=== PATIENT | female | born 1975 | race Asian ===

== ENCOUNTER 2017-10-06 17:20 | Day surgery (SDC) | payer OTHER ==
[~2017-10-06] VITALS: Ht 162.6 cm; Wt 52.2 kg
--- NOTE | 2017-10-06 17:21 | NUR ---
PT AMBULATED TO BED 2
[2017-10-06 17:33] VITALS: BP 104/48
--- NOTE | 2017-10-06 17:36 | NUR ---
41YO F PATIENT REFFERED TO ED BY DR BELLA FOR D&C S/P INCOMPLEAT MISCARRIAG. PT STATES SPOTTING FOR 3WKS. PT STATES LOWER ABD CRAMPING . DENIES N/V/D; SKIN IS PINK/WARM/DRY; AAOX4 WITH EVEN AND STEADY GAIT; LUNGS CLEAR BL; HR EVEN AND REGULAR; PT DENIES ANY FEVER, CP, SOB, OR COUGH AT THIS TIME; PATIENT STATES PAIN OF 2/10 AT THIS TIME; VSS; PATIENT POSITIONED FOR COMFORT; HOB ELEVATED; BEDRAILS UP X2; BED DOWN. ER MD MADE AWARE OF PT STATUS.
--- NOTE | 2017-10-06 17:53 | NUR ---
PATIENT SIGNED SURGICAL CONSENT
[2017-10-06 18:17] LABS: APPEARANCE,URINE CLEAR (CLEAR); BILIRUBIN,URINE NEGATIVE (NEGATIVE); BLOOD, URINE NEGATIVE (NEGATIVE); COLOR,URINE YELLOW (YELLOW); LEUKOCYTE ESTERASE ,URINE NEGATIVE (NEGATIVE); NITRITE, URINE NEGATIVE (NEGATIVE); UGLUCOSE NEGATIVE (NEGATIVE)
[2017-10-06 18:19] LABS: BASOPHILS % (AUTO) 0.2 % (0.0-2.0); EOSINOPHILS % (AUTO) 0.1 % (0.0-4.0); HEMATOCRIT 37.2 % (36-48); HEMOGLOBIN 12.5 g/dL (12.0-16.0); LYMPHOCYTES # (AUTO) 1.9 K/uL (2.5-16.5); MEAN CORPUSCULAR HEMOGLOBIN 31 pg (27-31); MEAN CORPUSCULAR HGB CONC 34 g/dL (33-37); MEAN CORPUSCULAR VOLUME 91.2 fL (80-94); MONOCYTES # (AUTO) 0.2 K/uL (0.8-1.0); MONOCYTES % (AUTO) 3.6 % (1.7-9.3); NEUTROPHILS # (AUTO) 3.9 K/uL (1.8-7.7); NEUTROPHILS % (AUTO) 65.1 % (42.2-75.2); PLATELET COUNT (AUTO) 207 K/uL (140-450); RED BLOOD CELL COUNT(AUTO) 4.08 MIL/uL (4.20-5.40); RED CELL DISTRIBUTION WIDTH 13.5 % (11.6-13.7)
--- NOTE | 2017-10-06 19:08 | NUR ---
report received from rajesh andrea
--- NOTE | 2017-10-06 19:14 | NUR ---
REPORT GIVEN TO BRENNEN KINGSLEY FOR CONTINUITY OF CARE
--- NOTE | 2017-10-06 19:14 | NUR ---
pt resting in bed, denies izzy pain. no s/s of distress noted at the moment.
--- NOTE | 2017-10-06 19:44 | NUR ---
Patient will be admitted to care of Felicita BELLA. Admited to MED SURG. Will go to [id number]. Belongings list completed. Report to SANCHO PALACIO AT BEDSIDE.
[2017-10-06] MEDS ORDERED: ACETAMINOPHEN/CODEINE 300/30MG 1 TAB PO PRN (20:50)
[2017-10-06] MEDS ORDERED: ONDANSETRON 4 MG/2 ML VIAL IVP PRN (20:50)
[2017-10-06] MEDS ORDERED: MORPHINE SULFATE 4 MG/ML SYR IM/IVP PRN (20:50)
[2017-10-06] MEDS ORDERED: IBUPROFEN 800 MG TAB PO PRN (20:50)
[2017-10-06] MEDS ORDERED: PROPOFOL 200 MG/20 ML VIAL IV ONE (20:52)
[2017-10-06] MEDS ORDERED: KETOROLAC 30 MG/ML VIAL ONE (20:52)
[2017-10-06] MEDS ORDERED: ONDANSETRON 4 MG/2 ML VIAL ONE (20:52)
[2017-10-06] MEDS ORDERED: DEXAMETHASONE 4 MG/ML VIAL ONE (20:52)
[2017-10-06] MEDS ORDERED: SEVOFLURANE 250 ML BTL INH ONE (20:52)
[2017-10-06] MEDS ORDERED: fentaNYL 0.05 MG/ML VIAL ONE (20:54)
--- NOTE | 2017-10-06 22:07 | NUR ---
RECEIVED A 41 Y/O FEMALE FROM OR VIA BED WITH IV LEFT FA 18 G. V/S TAKEN AND RECORDED. PATIENT IN COMFORTABLE POSITION WITH CALL LIGHT WITHIN REACH.CHECKED TI PAD DRY AND NO BLEEDING NOTED UPON ENDORSEMENT. WILL CONTINUE TO MONITOR.
--- NOTE | 2017-10-06 22:40 | NUR ---
PATIENT WENT TO BATHROOM TO URINATE AND COMPLAINED OF PAIN . JELLY-O GIVEN TO PATIENT. WILL CONTINUE TO MONITOR.
--- NOTE | 2017-10-06 22:46 | NUR ---
MEDICATION GIVEN TO PATIENT TO ALLEVIATE PAIN. WILL CONTINUE TO MONITOR .
[2017-10-07 00:02] VITALS: BP 108/62
--- NOTE | 2017-10-07 00:30 | NUR ---
DISCHARGE PATIENT VIA WHEELCHAIR. IV REMOVED AND ALL BELONGINGS TAKEN WITH THE PATIENT. V/ S TAKEN WITHIN NORMAL RANGE. PATIENT VOID TWICE AND ABLE TO ATE JELLY-0. PAIN LEVEL OF 2 DURING THE DISCHARGE. NO BLEEDING NOTED. PATIENT STATES " IM OK RIGHT NOW". PATIENT LEFT IN STABLE CONDITION ACCOMPANIED BY USING PRIVATE TRANSPORTATION. DISCHARGE PACKET GIVEN TO PATIENT AND INSTRUCTED TO FOLLOW-UP WITH DR. CAROLINA BELLA IN 1 WEEK. PATIENT VERBALIZED UNDERSTANDING.
== END 2017-10-06 23:00 | disposition home or self-care (01) ==
LOC: MED 17:20 → MTU 17:23 → MDS 17:23 → MTU 17:23 → UNDOADMOB 17:23 → MDS 23:00 → UNDODISOB 10-07 00:35
PROVIDERS: ATTEND Obstetrics & Gynecology
DX: O02.1 Missed abortion (principal); Z3A.14 14 weeks gestation of pregnancy; D25.9 Leiomyoma of uterus, unspecified
CPT/HCPCS: 36415; 59820; 81003; 85025; 86886; 86900; 86901; 87081; 99285; J1100; J1885; J2405; J2704; J3010; J7120

== ENCOUNTER 2017-11-04 15:29 | Inpatient (IN) | payer OTHER ==
[~2017-11-04] VITALS: Ht 162.6 cm; Wt 52.2 kg
--- NOTE | 2017-11-04 15:33 | NUR ---
PATIENT AMBULATED TO BED 03.
[2017-11-04 15:39] VITALS: BP 98/49
--- NOTE | 2017-11-04 15:40 | NUR ---
PATIENT PRESENTS TO ED WITH ABDOMINAL CRAMPING, ABNORMAL VAGINAL BLEEDING. PATIENT STATES SHE HAD AN 2 WEEKS AGO AND IS NOT BLEEDING AND IN PAIN. OR DOCTOR NOTIFIED AND AT BEDSIDE. STATES SHE HAS RETAINED PLACENTA. OR CONTACTED, IV STARTED.
[2017-11-04 15:52] LABS: BASOPHILS % (AUTO) 0.6 % (0.0-2.0); EOSINOPHILS % (AUTO) 0.6 % (0.0-4.0); HEMOGLOBIN 11.2 g/dL (12.0-16.0); LYMPHOCYTES # (AUTO) 1.9 K/uL (2.5-16.5); LYMPHOCYTES % (AUTO) 39.2 % (20.5-51.1); MEAN CORPUSCULAR HEMOGLOBIN 30 pg (27-31); MEAN CORPUSCULAR HGB CONC 33 g/dL (33-37); MEAN CORPUSCULAR VOLUME 92.3 fL (80-94); MONOCYTES # (AUTO) 0.3 K/uL (0.8-1.0); MONOCYTES % (AUTO) 5.8 % (1.7-9.3); NEUTROPHILS # (AUTO) 2.6 K/uL (1.8-7.7); NEUTROPHILS % (AUTO) 53.8 % (42.2-75.2); PLATELET COUNT (AUTO) 198 K/uL (140-450); RED BLOOD CELL COUNT(AUTO) 3.68 MIL/uL (4.20-5.40); RED CELL DISTRIBUTION WIDTH 13.7 % (11.6-13.7); WHITE BLOOD COUNT (AUTO) 4.8 K/uL (4.8-10.8)
[2017-11-04] MEDS ORDERED: ONDANSETRON 4 MG/2 ML VIAL ONE (16:00)
[2017-11-04] MEDS ORDERED: SEVOFLURANE 250 ML BTL INH ONE (16:00)
[2017-11-04] MEDS ORDERED: PROPOFOL 200 MG/20 ML VIAL IV ONE (16:00)
[2017-11-04] MEDS ORDERED: SUCCINYLCHOLINE CHLORIDE 200 MG/10 ML VIAL IVP ONE (16:00)
[2017-11-04] MEDS ORDERED: DEXAMETHASONE 4 MG/ML VIAL ONE (16:00)
--- NOTE | 2017-11-04 16:03 | NUR ---
PATIENT TAKEN TO OR BY OR STAFF AND DR Felicita BELLA.
[2017-11-04] MEDS ORDERED: fentaNYL 0.05 MG/ML VIAL ONE (16:05)
[2017-11-04] MEDS ORDERED: MIDAZOLAM 2 MG/2 ML VIAL ONE (16:05)
[2017-11-04] MEDS ORDERED: ceFAZolin 1,000 MG VIAL ONE (17:30)
[2017-11-04] MEDS ORDERED: ACETAMINOPHEN/CODEINE 300/30MG 1 TAB PO PRN (17:50)
[2017-11-04] MEDS ORDERED: MORPHINE SULFATE 4 MG/ML SYR ONE ×2 (17:53→19:08)
[2017-11-04 18:14] LABS: HEMATOCRIT 30.4 % (36-48)
[2017-11-04] MEDS ORDERED: OXYTOCIN 10 UNITS/ML VIAL ONE (18:14)
[2017-11-04] MEDS ORDERED: METHYLERGONOVINE 0.2 MG/ML AMP ONE (18:18)
[2017-11-04] MEDS ORDERED: THROMBIN KIT 20 MU VIAL TP ONE (18:22)
[2017-11-04] MEDS ORDERED: BUPIVACAINE-MPF 0.5% 30 ML VIAL INJ ONE (18:33)
[2017-11-04] MEDS ORDERED: METOCLOPRAMIDE 10 MG/2 ML INJ VIAL IVP PRN (18:50)
[2017-11-04] MEDS ORDERED: MORPHINE SULFATE 4 MG/ML SYR IVP PRN ×2 (18:50)
[2017-11-04] MEDS ORDERED: MIDAZOLAM 2 MG/2 ML VIAL IV ONE (18:50)
[2017-11-04] MEDS ORDERED: MORPHINE SULFATE 2 MG/ML SYR IVP PRN (18:50)
[2017-11-04] MEDS ORDERED: METOCLOPRAMIDE 10 MG/2 ML INJ VIAL ONE (19:00)
[2017-11-04 19:50] VITALS: BP 91/32
--- NOTE | 2017-11-04 19:50 | NUR ---
RECEIVED PT REPORT AT BEDSIDE FROM OR FOR CONTINUITY OF CARE. PT SLEEPING. PT IV NOTED LFA 20G INFUSING IV NS OPEN WIDE. PT BP IS LOW AND HAS ORDERS FOR 2 UNITS PRBC. BED LOWERED CALL LIGHT WITHIN REACH SPEAKS LITTLE KAZAKH MAINLY MANDARIN.
--- NOTE | 2017-11-04 20:30 | NUR ---
STARTED 1 UNIT PRBC.
--- NOTE | 2017-11-04 20:45 | NUR ---
NO REACTIONS WILL CONTINUE TO INFUSE. WILL CONTINUE TO MONITOR.
[2017-11-04] MEDS: MORPHINE SULFATE 4 MG/ML SYR IM/IVP PRN (22:33)
[2017-11-05] VITALS: BP 100/59
[2017-11-05] MEDS: MORPHINE SULFATE 4 MG/ML SYR IM/IVP PRN ×3 (03:26→12:51)
[2017-11-05 07:13] LABS: BASOPHILS % (AUTO) 0.2 % (0.0-2.0); HEMATOCRIT 28.3 % (36-48); HEMOGLOBIN 9.7 g/dL (12.0-16.0); LYMPHOCYTES # (AUTO) 1.1 K/uL (2.5-16.5); MEAN CORPUSCULAR HEMOGLOBIN 32 pg (27-31); MEAN CORPUSCULAR HGB CONC 34 g/dL (33-37); MEAN CORPUSCULAR VOLUME 93.1 fL (80-94); MONOCYTES # (AUTO) 0.3 K/uL (0.8-1.0); MONOCYTES % (AUTO) 5.1 % (1.7-9.3); NEUTROPHILS # (AUTO) 5.3 K/uL (1.8-7.7); NEUTROPHILS % (AUTO) 78.7 % (42.2-75.2); PLATELET COUNT (AUTO) 142 K/uL (140-450); RED BLOOD CELL COUNT(AUTO) 3.04 MIL/uL (4.20-5.40); RED CELL DISTRIBUTION WIDTH 13.6 % (11.6-13.7); WHITE BLOOD COUNT (AUTO) 6.7 K/uL (4.8-10.8)
--- NOTE | 2017-11-05 07:30 | NUR ---
GAVE REPORT TO DAYSHIFT NURSE FOR CONTINUITY OF CARE.
--- NOTE | 2017-11-05 07:31 | NUR ---
RECEIVED REPORT FROM THE DEFENSIVE SECONDARY COACH NURSE AT BEDSIDE FOR CONTINUITY OF CARE. PT IS AWAKE AND ORIENTED. INTRODUCED MYSELF AND UPDATED THE BOARDS. PT HAS IV ON L FA 20G SL. PT HAS ABDOMINAL DRESSING IN LOWER ABD. S/P D&C AND A TUMOR REMOVED IN THE C SEC AREA. PT HAS A ROSAS CATH. PT IS WEAK AND PALE. SPEAKS VERY SOFTLY. V/S WITHIN NORMAL RANGE. NO BLEEDING NOTED. NO TRAY CAME. WILL CALL FOR A CLEAR LIQUID DIET TRAY. WILL CONTINUE TO MONITOR PT.
[2017-11-05 08:00] VITALS: BP 96/60
--- NOTE | 2017-11-05 08:32 | NUR ---
PATIENT HAS BEEN SCREENED AND CATEGORIZED LOW NUTRITION RISK. PATIENT WILL BE SEEN WITHIN 7 DAYS OF ADMISSION. 11/11/[address]
[2017-11-05] MEDS: ALUMINUM HYD/MAG/SIMETHICONE 30 ML UDC PO PRN ×2 (09:30→18:38)
--- NOTE | 2017-11-05 09:36 | NUR ---
ADMINISTERED MYLANTA FOR GAS PAIN. PT TOLERATED WELL. REMOVED ROSAS CATH. 600ML IN THE BAG. TOLERATED WELL. GAVE HER PADS AND UNDERWEAR. BUT NO SIGNS OF BLEEDING. ENCOURAGED PT TO AMBULATE TODAY. WILL CONTINUE TO MONITOR PT.
--- NOTE | 2017-11-05 11:12 | NUR ---
PT SLEEPING. SPOUSE AT BEDSIDE. WILL CONTINUE TO MONITOR PT.
[2017-11-05] MEDS ORDERED: MORPHINE SULFATE 4 MG/ML SYR ONE (12:49)
--- NOTE | 2017-11-05 13:40 | NUR ---
ASKED HARLEY RN TO TRANSLATE IN MANDARIN. PT'S SPOUSE WAS ASKING QUESTIONS REGARDING PT BEING DISCHARGED TODAY. PT HAD A LAPAROTOMY, HYSTEROTOMY, AND D & C , YESTERDAY. PT IS WEAK. UNABLE TO AMBULATE, UNABLE TO TURN TO HER SIDE FOR THE BEDPAN. PT HAD TO BE PICKED UP BY THE SPOUSE TO BE PLACE ON THE BEDPAN. PT IS IN A LOT OF PAIN. MORPHINE HELPED. EXPLAINED TO PT'S SPOUSE, IF PT IS NOT ABLE TO STAND UP AND AMBULATE, URINATE, AND PASS GAS, IT IS UNLIKELY SHE WILL GO HOME TODAY. HE ASKED ABOUT FISH SOUP, [place]. OK TO BRING, IF SHE TOLERATES IT. WILL CONTINUE TO MONITOR PT.
--- NOTE | 2017-11-05 13:44 | NUR ---
Clinical review faxed to Suzanne at [facility] at [phone]
--- NOTE | 2017-11-05 15:02 | NUR ---
PT RESTING COMFORTABLY. SPOUSE AT BEDSIDE. NO SIGNS OF DISTRESS. WILL CONTINUE TO MONITOR PT.
[2017-11-05 16:00] VITALS: BP 100/61
--- NOTE | 2017-11-05 16:48 | NUR ---
PER PT, PT GOT UP EARLIER WITH HER AND AMBULATED TO THE BATHROOM AND URINATED TODAY. WILL CONTINUE TO MONITOR PT.
--- NOTE | 2017-11-05 18:06 | NUR ---
WOUND CARE DONE. REMOVED OLD DRESSING, CLEANED AND PATTED DRY. TOOK PICTURE. FILED IN CHART. REDRESSED WITH CLEAN ABD PAD AND PAPER TAPE. STERI STRIPS INTACT. PT TOLERATED WELL. WILL CONTINUE TO MONITOR PT.
[2017-11-05] MEDS: HYDROcodone/APAP 7.5/325 MG 1 TAB PO PRN (18:26)
--- NOTE | 2017-11-05 18:42 | NUR ---
DR BELLA IS HERE TO SEE PT. PER , PT WILL STAY ANOTHER DAY. PT AMBULATED TO AND FROM THE BATHROOM. WILL CONTINUE TO MONITOR PT.
--- NOTE | 2017-11-05 19:27 | NUR ---
ENDORSED PT TO THE OFFICE MESSENGER HELPER NURSE AT BEDSIDE FOR CONTINUITY OF CARE. PT IS IN STABLE CONDITION.
--- NOTE | 2017-11-05 19:30 | NUR ---
REPORT RECEIVED FROM HARPREET KINGSLEY DAYSHIFT NURSE AT BEDSIDE FOR TRANSFER OF CARE. PT IN STABLE CONDITION LYING IN LOW BED, WITH SIDE RAILS UP X 2 AND CALL GUTIERREZ IN REACH. PT C/ OF MILD PAIN 2-08/02. PT DRESSING IS DRY AND INTACT AND PT STATES THAT SHE HAS NOT HAD ANY MORE VAGINAL BLEEDING AT THIS TIME. PT TEMP WAS 100.1 PT DECLINED ANY PAIN RELIEVERS AND REQUESTED A RETAKE OF TEMP IN A LITTLE WHILE.
[2017-11-05] MEDS ORDERED: ACETAMINOPHEN 325 MG TAB PO PRN ×2 (22:05→22:10)
--- NOTE | 2017-11-05 22:50 | NUR ---
DR BELLA OFFICE CALLED AND DR CHART CALCULATOR DR BRIGID BOND WAS NOTIFED THAT PT HAS NO TYLENOL FOR MILD PAIN AND INCREASED TEMP. DR RAINEY ORDERED TYLENOL 650MG Q 4 PRN FOR MILD PAIN AND FEVER (TORB). PT TEMP RETAKEN AND WAS 99.2, PT GIVEN TYLENOL 650MG FOR MILD PAIN AND TEMP.
[2017-11-06] VITALS: BP 95/52
[2017-11-06] MEDS: HYDROcodone/APAP 7.5/325 MG 1 TAB PO PRN (00:52)
[2017-11-06] MEDS: ALUMINUM HYD/MAG/SIMETHICONE 30 ML UDC PO PRN (00:53)
--- NOTE | 2017-11-06 01:00 | NUR ---
PT OFFERED TOILET AND GOWN CHANGED. PT ABLE TO AMBULATE WITH 2 ASSIST. SHE HAD C/O OF PAIN AND WAS GIVEN NORCO. BED IN LOW POSITION AND CALL GUTIERREZ IN REACH. ALL NEEDS ATTENDED BY BY STAFF.
--- NOTE | 2017-11-06 01:30 | NUR ---
PT REPORTED A SMALL AMOUNT OF BLEEDING WHEN SHE WENT TO TOILET.
--- NOTE | 2017-11-06 07:20 | NUR ---
CHANGE OF SHIFT REPORT GIVEN AT BEDSIDE FOR TRANSFER FOR CARE.
--- NOTE | 2017-11-06 07:25 | NUR ---
RECEIVED PT FROM DANCE DIRECTOR NURSE, HEMALATHA, PT IS AWAKE AND LYING ON THE BED WITH A LEFT FOREARM SALINE LOCK G.20, INTACT. SIDE RAILS ARE UP AND CALL LIGHT WITHIN REACH. PLAN OF CARE WAS DISCUSSED AND PT VERBALIZED UNDERSTANDING. DR. BELLA VISITED AND SPOKE TO THE PT WHILE [facility] SHIFT NURSE IS GIVING REPORT. DR. BELLA MADE A VERBAL ORDER OF REGLAN 10MG, QID. NO SIGN OF DISTRESS NOTED ON THE PT. WILL CONTINUE TO MONITOR.
--- NOTE | 2017-11-06 07:45 | NUR ---
PT IS AWAKE AND ASSISTED TO THE BATHROOM, PT VERBALIZED FEELING A LITTLE DIZZY, PAD CHECKED AND THERE IS ONLY SCANT OF BLOOD. PT WAS ASSISTED BACK TO BED AND MADE COMFORTABLE. SIDE RAILS ARE UP AND CALL LIGHT WITHIN REACH. WILL MONITOR.
--- NOTE | 2017-11-06 07:50 | NUR ---
PT IS AWAKE AND VITAL SIGNS TAKEN AND BP IS 93/50, O2 SAT IS AT 96%, PULSE IS 88. PT VERBALIZED NO PAIN AND NO UNTOWARD SIGNS AND SYMPTOMS NOTED. CALL LIGHT WITHIN REACH AND WILL CONTINUE TO MONITOR.
[2017-11-06 08:00] VITALS: BP 93/50
--- NOTE | 2017-11-06 08:15 | NUR ---
PATIENT HAS BEEN SCREENED AND CATEGORIZED LOW NUTRITION RISK. PATIENT WILL BE SEEN WITHIN 7 DAYS OF ADMISSION. 11/11/[address]
[2017-11-06] MEDS: METOCLOPRAMIDE 10 MG TAB PO SCH ×4 (09:31→20:27)
[2017-11-06] MEDS: DOCUSATE SODIUM 100 MG GELCAP PO SCH (09:31)
--- NOTE | 2017-11-06 09:41 | NUR ---
PT IS AWAKE LYING ON THE BED, MEDICATIONS GIVEN AND PT TOLERATED IT. NO SIGN OF DISTRESS NOTED. SIDE ARE UP AND CALL LIGHT WITHIN REACH. WILL CONTINUE TO MONITOR.
--- NOTE | 2017-11-06 10:32 | NUR ---
[place] [facility] [phone] PH[place] MAY [phone]
--- NOTE | 2017-11-06 10:55 | NUR ---
PT WAS SEEN AMBULATING IN THE HALLWAY WITH THE ASSISTANCE OF THE CLOTH PRINTING UTILITY WORKERCHRIS, NO SIGN OF DISTRESS NOTED. WILL CONTINUE TO MONITOR.
--- NOTE | 2017-11-06 13:07 | NUR ---
PT IS AWAKE AND SEATED ON THE CHAIR, MEDICATION GIVEN AND PT TOLERATED IT. NO SIGN OF DISTRESS NOTED AND WILL CONTINUE TO MONITOR.
[2017-11-06 16:00] VITALS: BP 112/50
--- NOTE | 2017-11-06 16:55 | NUR ---
DR. BELLA ORDERED FOR A FLEET ENEMA FOR THE PT. ORDERED ACKNOWLEDGED AND WILL FACILITATE ADMINISTRATION.
[2017-11-06] MEDS ORDERED: SODIUM PHOSPHATE 118 ML ENEM RC SCH (17:23)
--- NOTE | 2017-11-06 17:42 | NUR ---
PT IS AWAKE LYING ON THE BED, STILL HAS NOT PASS GAS, MEDIATION GIVEN AND PT TOLERATED IT. NO SIGN OF DISTRESS NOTED. WILL CONTINUE TO MONITOR.
--- NOTE | 2017-11-06 19:00 | NUR ---
PT IS AWAKE AND FINALLY AGREED TO HAVE THE FLEET ENEMA, ADMINISTERED AND ASSISTED PT TO THE BATHROOM. SMALL AMOUNT OF STOOL NOTED ON THE TOILET BOWL. NO SIGN OF DISTRESS NOTED.
--- NOTE | 2017-11-06 19:15 | NUR ---
ENDORSED PT TO PECAN GROWER NURSE, MARCIE, FOR CONTINUITY OF CARE. PT IS STABLE AT THIS TIME.
--- NOTE | 2017-11-06 19:16 | NUR ---
RECEIVED PT FROM DAY SHIFT NURSE TERRENCE-RN. PT IS AWAKE AND LYING ON THE BED WITH A LEFT FOREARM SALINE LOCK G.20, INTACT.PLAN OF CARE WAS DISCUSSED AND PT VERBALIZED UNDERSTANDING. WHITE BOARD UPDATED. NO S/S OF RESPIRATORY DISTRESS OR DISCOMFORT NOTED. BED IN LOWEST POSITION, BED BREAKS ON, SIDE RAILS UP. BED SIDE TABLE AND CALL LIGHT WITHIN REACH. WILL CONTINUE TO MONITOR.
[2017-11-06 20:00] VITALS: BP 99/55
--- NOTE | 2017-11-06 20:00 | NUR ---
VITAL SIGNS TAKEN AND TOLERATED WELL. WILL CONTINUE TO MONITOR.
--- NOTE | 2017-11-06 20:30 | NUR ---
SCHEDULED MEDICATION GIVEN. NO S/S OF RESPIRATORY DISTRESS OR DISCOMFORT AT THIS TIME. WILL CONTINUE TO MONITOR.
--- NOTE | 2017-11-06 22:00 | NUR ---
PT RESTING IN CHAIR. NO S/S OF RESPIRATORY DISTRESS OR DISCOMFORT. WILL CONTINUE TO MONITOR.
--- NOTE | 2017-11-07 | NUR ---
VITAL SIGNS TAKEN AND TOLERATED WELL. PT C/O ABDOMINAL PAIN -STOMACH PAIN SPECIFICALLY. WILL MEDICATE.
[2017-11-07] MEDS: ALUMINUM HYD/MAG/SIMETHICONE 30 ML UDC PO PRN ×2 (00:12→12:36)
--- NOTE | 2017-11-07 00:14 | NUR ---
PT C/O ABDOMINAL PAIN10 STATING IT WAS STOMACH PAIN AND REFUSING MORPHINE. SHE STATED SHE HAD TAKEN A "WHITE LIQUID" THAT HELPED HER BEFORE. ADMINISTERED MAALOX/MYLANTA. PT TOLERATED WELL. WILL CONTINUE TO MONITOR.
--- NOTE | 2017-11-07 02:00 | NUR ---
PT RESTING IN BED. NO S/S OF RESPIRATORY DISTRESS OR DISCOMFORT AT THIS TIME. WILL CONTINUE TO MONITOR.
--- NOTE | 2017-11-07 04:33 | NUR ---
PT USING RESTROOM AT THIS TIME. WILL RETURN LATER. WILL CONTINUE TO MONITOR.
[2017-11-07] MEDS: HYDROcodone/APAP 7.5/325 MG 1 TAB PO PRN (05:04)
--- NOTE | 2017-11-07 05:09 | NUR ---
PT C/O OF PAIN 10/02 ABDOMEN. GAVE HER OPTIONS FOR PAIN MANAGEMENT AND OPTED FOR NORCO. NORCO WAS GIVEN AND TOLERATED WELL. WILL CONTINUE TO MONITOR.
--- NOTE | 2017-11-07 06:00 | NUR ---
PT SLEEPING AT THIS TIME. NO S/S OF RESPIRATORY DISTRESS OR DISCOMFORT AT THIS TIME. WILL CONTINUE TO MONITOR.
--- NOTE | 2017-11-07 06:46 | NUR ---
DR BELLA IN TO SEE PT. HE SAID HE WOULD D/C HER TODAY AND SEE HER IN HIS OFFICE ON FRIDAY.
--- NOTE | 2017-11-07 07:14 | NUR ---
ENDORSED PT CARE TO DAY SHIFT NURSE FER FOR CONTINUITY OF CARE.
--- NOTE | 2017-11-07 07:20 | NUR ---
RECEIVED PT FROM GEOSPATIAL APPLICATIONS DEVELOPER NURSE, MARCIE, PT IS AWAKE AND SEATED ON THE BED WITH AN IV SALINE LOCK ON THE LEFT FA G. 20, INTACT. PT VERBALIZED THAT SHE HAS NOT PASS GAS BUT HAD PASS TWO SMALL STOOLS, ONE YESTERDAY AFTER THE FLEET ENEMA AND ONE LAST NIGHT. SIDE RAILS ARE UP AND CALL LIGHT WITHIN REACH, VITAL SIGNS TAKEN AND NO SIGN OF DISTRESS NOTED. WILL CONTINUE TO MONITOR.
[2017-11-07 08:00] VITALS: BP 103/52
[2017-11-07] MEDS: METOCLOPRAMIDE 10 MG TAB PO SCH ×2 (08:43→12:39)
[2017-11-07] MEDS: DOCUSATE SODIUM 100 MG GELCAP PO SCH (08:43)
--- NOTE | 2017-11-07 08:48 | NUR ---
PT IS AWAKE AND LYING ON THE BED, MEDICATIONS GIVEN AND PT TOLERATED IT. NO SIGN OF DISTRESS NOTE AND WILL CONTINUE TO MONITOR.
--- NOTE | 2017-11-07 09:01 | NUR ---
PT 'S DIET WAS TRANSITIONED TO REGULAR DIET PER DR. BELLA AND CHARGE NURSE, ROLF, LANIE.
--- NOTE | 2017-11-07 11:43 | NUR ---
DR. BELLA VISITED AND SPOKE TO THE PT. DR. BELLA VERBALIZED THAT THE PT WILL BE DISCHARGE. ACKNOWLEDGED.
--- NOTE | 2017-11-07 12:04 | NUR ---
ACKNOWLEDGED A DISCHARGE ORDER FOR THE PT FROM OSCAR NEWMAN. WILL FACILITATE DISCHARGE PROCESS AND WILL INFORM THE PT.
--- NOTE | 2017-11-07 12:40 | NUR ---
PT IS AWAKE AND EATING HER LUNCH, MEDICATIONS GIVEN AND PT TOLERATED IT,NO SIGN OF DISTRESS NOTED. WILL MONITOR.
--- NOTE | 2017-11-07 12:43 | NUR ---
ACKNOWLEDGED A DISCHARGE ORDER FOR THE PT FROM DR. BELLA, NOTED THAT THE FIRST DISCHARGED ORDER MADE WAS CANCELLED WITH DR. LING NOTED THE ORDERING MD.
--- NOTE | 2017-11-07 12:51 | NUR ---
CALLED MAY AT [facility] [place] [place] AND INFORMED HER THAT PATIENT DISCHARGED.
--- NOTE | 2017-11-07 13:50 | NUR ---
PT IS AWAKE AND AMBULATING IN THE HALLWAY. NO SOB NOTED. WILL MONITOR.
[2017-11-07] MEDS ORDERED: METO-485 PO (15:41)
[2017-11-07] MEDS ORDERED: BISA-213 RC (15:43)
[2017-11-07] MEDS ORDERED: DOCU-474 PO (15:43)
[2017-11-07] MEDS ORDERED: IBUP-1842 PO (15:45)
[2017-11-07 16:00] VITALS: BP 110/63
--- NOTE | 2017-11-07 16:30 | NUR ---
PT IS AWAKE AND VITAL SIGN TAKEN AND IS STABLE. NO SIGN OF DISTRESS NOTED.
--- NOTE | 2017-11-07 16:40 | NUR ---
ABDOMINAL INCISION CHECKED AND PICTURE TAKEN AND ATTACHED TO CHART. INCISION IS DRY AND INTACT, RACHEL. NO DRAINAGE NOTED.
--- NOTE | 2017-11-07 16:55 | NUR ---
DISCHARGED PT VIA WHEELCHAIR WITH THE , IV LINE AND ARM BANDS REMOVED. DISCHARGED INSTRUCTIONS AND MEDICATION PRESCRIPTION GIVEN AND PT VERBALIZED UNDERSTANDING. PT IS STABLE AT THIS TIME.
== END 2017-11-07 16:55 | disposition home or self-care (01) | DRG 770 ==
LOC: MED 15:29 → MDS 15:54 → MTU 15:54 → MDS 20:02 → MTU 20:02 → UNDOADMIN 20:02
PROVIDERS: ADMIT Obstetrics & Gynecology; ATTEND Obstetrics & Gynecology
PROC: 10D17ZZ Extraction of Products of Conception, Retained, Via Natural or Artificial Opening (ICD-10-PCS; principal; 2017-11-04 15:30)
PROC: 30233P1 Transfusion of Nonautologous Frozen Red Cells into Peripheral Vein, Percutaneous Approach (ICD-10-PCS; 2017-11-05)
DX: O03.4 Incomplete spontaneous abortion without complication (principal); D25.9 Leiomyoma of uterus, unspecified
CPT/HCPCS: 36415; 76856; 85018; 85025; 86886; 86900; 86901; 86920; 87081; 88300; 88305; 99285; J0330; J0690; J1100; J2210; J2250; J2270; J2405; J2590; J2704; J2765; J3010; J3490; J7030; J7120; J8597; P9016; Q0092